=== PATIENT | female | born 1990 | race Caucasian/White ===

== ENCOUNTER 2018-09-08 23:51 | Emergency (ER) | payer SELFPAY ==
[~2018-09-08] VITALS: Ht 162.5 cm; Wt 90.7 kg
[~2018-09-08 23:51] MED LIST: AMOXICILLIN500 M2 PO; APAP W/ CODEINE1 TAB PO; AUGMENTIN 875-875 MG PO; BENTYL10 MG PO; FLINTSTONES1 CTB PO; HYDROCODONE BIT1 T11 PO; MOTRIN800 MG PO; NKHM; PEPCID20 MG PO
[2018-09-09] MEDS ORDERED: AMOXICILLIN500 M2 PO (00:34)
== END 2018-09-09 02:40 | disposition home or self-care (01) ==
LOC: ED 23:51
DX: J01.90 Acute sinusitis, unspecified (principal); H66.91 Otitis media, unspecified, right ear; J02.9 Acute pharyngitis, unspecified; Z79.2 Long term (current) use of antibiotics; Z79.899 Other long term (current) drug therapy

== ENCOUNTER 2018-12-30 20:22 | Emergency (ER) | payer BC ==
[~2018-12-30] VITALS: Ht 162.5 cm; Wt 90.7 kg
[2018-12-30] MEDS ORDERED: AMOXICILLIN500 M3 PO (21:41)
[2018-12-30] MEDS ORDERED: Motrin,Rufen800 MG PO (21:41)
== END 2018-12-30 21:30 | disposition home or self-care (01) ==
LOC: ED 20:22
DX: J02.0 Streptococcal pharyngitis (principal); Z98.890 Other specified postprocedural states; Z79.899 Other long term (current) drug therapy

== ENCOUNTER 2021-02-07 04:14 | Emergency (ER) | payer OTHER ==
[~2021-02-07] VITALS: Ht 162.5 cm; Wt 99.8 kg
[~2021-02-07 04:14] MED LIST changes: +AMOXICILLIN500 M3 PO; +Motrin,Rufen800 MG PO
[2021-02-07 05:26] LABS: ALBUMIN 3.3 gm/dl (3.1-4.5); ALKALINE PHOSPHATASE 71 U/L (45-117); BUN 12 mg/dl (7-24); CHLORIDE 106 mmol/L (98-107); CREATININE 0.96 mg/dL (0.55-1.02); LIPASE 181 U/L (73-393); POTASSIUM 3.7 mmol/L (3.5-5.1); SGOT/AST 15 IU/L (3-35); SGPT/ALT 26 U/L (12-78); SODIUM 137 mmol/L (136-145)
[2021-02-07 05:27] LABS: TROPONIN I < 0.015 ng/ml (<0.045)
[2021-02-07 05:47] LABS: BASO % 0.3 % (0.0-1.0); EOS % 0.3 % (1.0-4.0); HEMATOCRIT 42.6 % (37.0-47.0); LYMPH # 0.6 10*3/uL (1.3-4.4); LYMPH % 8.3 % (27.0-41.0); MEAN CELL VOLUME 85.9 fl (81.0-99.0); MEAN CORPUSCULAR HGB CONC 32.6 g/dl (33.0-37.0); MEAN PLATELET VOLUME 10.1 fl (9.6-12.3); MONO % 13.6 % (3.0-9.0); NEUT # 5.5 10*3/uL (2.3-7.9); NEUT % 76.5 % (47.0-73.0); PLATELET COUNT AUTOMATED 277 10*3/uL (130-400); RED BLOOD COUNT 4.96 10*6/uL (4.10-5.10); RED CELL DISTRI WIDTH 12.7 % (0-14.5); WHITE BLOOD COUNT 7.1 10*3/uL (4.8-10.8)
[2021-02-07] MEDS ORDERED: OMEPRAZOLE20 M3 PO (06:21)
== END 2021-02-07 06:42 | disposition home or self-care (01) ==
LOC: ED 04:14
PROVIDERS: Hospitalist
DX: K21.9 Gastro-esophageal reflux disease without esophagitis (principal); R07.89 Other chest pain; Z79.899 Other long term (current) drug therapy

== ENCOUNTER 2023-11-05 06:32 | Emergency (ER) | payer BC ==
[~2023-11-05] VITALS: Ht 167.6 cm; Wt 95.3 kg
[~2023-11-05 06:32] MED LIST changes: +OMEPRAZOLE20 M3 PO
[2023-11-05] MEDS ORDERED: PREDNISOLO15 MG/5 M1 PO (07:35)
[2023-11-05] MEDS ORDERED: AUGMENTIN600 MG/5 M PO (07:35)
[2023-11-05] MEDS ORDERED: [UNRECOGNIZED DRUG - OTHER] PO (08:18)
== END 2023-11-05 08:20 | disposition home or self-care (01) ==
LOC: ED 06:32
DX: H66.92 Otitis media, unspecified, left ear (principal); J02.9 Acute pharyngitis, unspecified; K21.9 Gastro-esophageal reflux disease without esophagitis; Z98.890 Other specified postprocedural states